=== PATIENT | male | born 1980 | race Caucasian/White ===

== ENCOUNTER 2020-05-18 04:02 | Emergency (ER) | payer SELFPAY ==
[~2020-05-18] VITALS: Ht 172.7 cm; Wt 80.0 kg
[~2020-05-18 04:02] MED LIST: HYDR-2761 PO
[2020-05-18 04:10] VITALS: BP 198/97
--- NOTE | 2020-05-18 04:25 | PHYS DOC ---
Past Medical History Past Medical History: No Pertinent History Past Surgical History: No Surgical History Smoking Status: Current Every Day Smoker Alcohol Use: None Drug Use: None General Adult EDM: Chief Complaint: MULTIPLE COMPLAINTS HPI: HPI: History obtained from patient. Patient is a 39-year-old male with no reported medical history who presents with chief complaint of body aches and fever. Patient states he is had an intermittent fever over the past week. He states he has had diffuse body aches as well. Denies any known exposure to coronavirus. States his significant other at home has similar symptoms. He has been trying TheraFlu with minimal relief. He does have some chest heaviness and shortness of breath. Notes a dry cough. No sore throat or runny nose. Denies any IV drug use. Denies exertional component to his chest pain. States it is a constant aching pressure worse with coughing. Does note decrease in p.o. intake due to not feeling well. States he has general fatigue and overall weakness. No other complaints. Review of Systems: Review of Systems: Constitutional: Positive for fevers, chills, fatigue, generalized weakness Eyes: Denies change in visual acuity. [] HENT: Denies nasal congestion or sore throat. [] Respiratory: Positive for cough and shortness of breath Cardiovascular: Positive for chest GI: Denies abdominal pain, nausea, vomiting, bloody stools or diarrhea. [] : Denies dysuria. [] Musculoskeletal: Denies back pain or joint pain. [] Integument: Denies rash. [] Neurologic: Denies headache, focal weakness or sensory changes. [] Endocrine: Denies polyuria or polydipsia. [] Lymphatic: Denies swollen glands. [] Psychiatric: Denies depression or anxiety. [] Heart Score: Risk Factors: Risk Factors: DM, Current or recent (<one month) smoker, HTN, HLP, family history of CAD, obesity. Risk Scores: Score 0 - 3: 2.5% MACE over next 6 weeks - Discharge Home Score 4 - 6: 20.3% MACE over next 6 weeks - Admit for Clinical Observation Score 7 - 10: 72.7% MACE over next 6 weeks - Early Invasive Strategies Allergies: Allergies: Allergies Coded Allergies Type Severity Reaction Last Updated Verified No Known Drug Allergies 04/22/19 No Physical Exam: PE: Constitutional: Well developed, well nourished, no acute distress, non-toxic appearance. [] HENT: Normocephalic, atraumatic, bilateral external ears normal, oropharynx moist, no oral exudates, nose normal. [] Eyes: PERRLA, EOMI, conjunctiva normal, no discharge. [] Neck: Normal range of motion, no tenderness, supple, no stridor. [] Cardiovascular: Tachycardic, rhythm, no murmur [] Lungs & Thorax: Bilateral breath sounds clear to auscultation [] Abdomen: soft, no tenderness, no masses, no pulsatile masses. [] Skin: Warm, dry, no erythema, no rash. [] Back: No tenderness, no CVA tenderness. [] Extremities: No tenderness, no cyanosis, no clubbing, ROM intact, no edema. [] Neurologic: Alert and oriented X 3, normal motor function, normal sensory function, no focal deficits noted. [] Psychologic: Affect normal, judgement normal, mood normal. [] EKG: EKG: [] Radiology/Procedures: Radiology/Procedures: [] Course & Med Decision Making: Course & Med Decision Making Pertinent Labs and Imaging studies reviewed. (See chart for details) [] Patient is a 39-year-old male who presents with multiple complaints including body aches, fevers, chills, generalized weakness, and fatigue. I am suspicious that he may have Covid. I did explain the patient that we could obtain an EKG chest x-ray imaging, as well as administer medications and fluids for symptomatic care in addition to obtaining Covid swab testing for evaluation. While IV was beginning to be placed patient suddenly became agitated and requested to leave the emergency department. I did explain to the patient that we cannot fully exclude life or limb threatening illness without evaluation. I asked if there is anything we can do to get him to stay in the emergency department which he replied no. At this time patient is electing leave AGAINST MEDICAL ADVICE. I did explicitly instruct the patient to self quarantine at home given my concern for Covid19. The patient is clinically sober, free from distracting injury, appears to have intact insight and judgment and reason and in my opinion has the capacity to make decisions. I have explained to patient that I am concerned that this may represent a potential life threatening condition, they have verbalized an under standing of my concerns. I have told the patient that while labs/imaging are normal, they could still have life-threatening illnesses. I have discussed the need for further evaluation to get more information about potential causes of the patients symptoms. Informed of reasonably foreseeable complications including and disability, loss of vision, fertility. I have offered to give the patient more medication, and stay for further evaluation. I have discussed these concerns with any present family members who are also unable to convince patient to stay. The patient is not willing to stay for further evaluation, and is unwilling to stay overnight for monitoring. The patient is refusing any further care and is leaving against medical advice. I have asked them to return as soon as possible to complete their evaluation. I have answered all of their questions. COVID-19 CRITERIA: The patient was evaluated during the global COVID-19 pandemic, and that diagnosis was suspected/considered upon their initial presentation. Their evaluation, treatment and testing was consistent with current guidelines for patients who present with complaints or symptoms that may be related to COVID-19. Mick Disclaimer: Mick Disclaimer: This electronic medical record was generated, in whole or in part, using a voice recognition dictation system. Departure Departure Impression: Primary Impression: Suspected COVID-19 virus infection Disposition: AMA/ELOPED/LWBS Referrals: NO PCP (PCP) NATO KERR DO May 18, 2020 04:25
[2020-05-18] MEDS ORDERED: KETOROLAC 15 MG/ML VIAL. IVP ONE (05:00)
[2020-05-18] MEDS ORDERED: IBUPROFEN 400 MG TABLET. PO ONE (05:00)
[2020-05-18] MEDS ORDERED: IV NORMAL SALINE 1000ML BAG 1,000 ML IV ONE (05:00)
== END 2020-05-18 04:38 | disposition left against medical advice (07) ==
LOC: ER 04:02
DX: R50.9 Fever, unspecified (principal); Z20.828 Contact with and (suspected) exposure to other viral communicable diseases; R06.02 Shortness of breath; R53.83 Other fatigue; R53.1 Weakness; F17.200 Nicotine dependence, unspecified, uncomplicated
CPT/HCPCS: 99281